=== PATIENT | male | born 1990 | race Caucasian/White ===

== ENCOUNTER 2024-07-18 10:05 | Emergency (ER) | payer OTHER ==
--- NOTE | 2024-07-18 11:18 | RAD REPORT ---
EXAMINATION: ONE VIEW CHEST XR CLINICAL INDICATION: CHEST PAIN TECHNIQUE: Frontal chest projection is submitted. Examination is limited by patient positioning and t echnique. COMPARISON: No prior exam. FINDINGS: The lungs are well inflated and clear. The heart is upper limit of normal in size. No displaced fract ures identified. IMPRESSION: No acute intrathoracic abnormalities.
[2024-07-18 12:06] LABS: Absolute Eosinophils 0.2 K/uL (0-0.5); Absolute Lymphocytes (CBC) 2.1 K/uL (0.7-4.9); Absolute Monocytes 0.4 K/uL (0.1-1.3); Absolute Neutrophil 3.4 K/uL (1.8-8.0); Basophils % 0.8 % (0-1.3); Hematocrit 47.2 % (39.6-49.0); Hemoglobin 16.7 g/dL (13.6-17.9); Lymphocytes % 33.9 % (15.3-44.8); MCHC 35.5 g/dL (32.0-36.0); MCV 87.4 fL (80-100); MPV 9.2 fL (7.6-11.3); Monocytes % 6.6 % (3.3-12.3); Neutrophils % 55.7 % (41.7-73.7); Platelets 249 thou/uL (152-406); Red Cell Distribution Width 13.2 % (12.1-15.2)
[2024-07-18 12:24] LABS: Anion Gap 9.2 mEq/L (5.0-15.0); Potassium 4.2 mEq/L (3.5-5.1); Troponin High Sensitivity 4.6 pg/mL (<58.9)
--- NOTE | 2024-07-18 13:07 | ER ---
Nurse's Notes [facility] Name: Los Graham Age: 34 yrs Sex: Male : 1990 Arrival Date: 07/18/2024 Time: 10:05 Bed 18 Private MD: Diagnosis: Chest pain, unspecified Presentation: 07/18 10:13 Chief complaint: Patient states: Past couple of days had chest pain (more of a ko1 discomfort) on right side down into ribs, hurts when taking a deep breath. Coronavirus screen: At this time, the client does not indicate any symptoms associated with coronavirus-19. Ebola Screen: No symptoms or risks identified at this time. Initial Sepsis Screen: Does the patient meet any 2 criteria? No. Patient's initial sepsis screen is negative. Does the patient have a suspected source of infection? No. Patient's initial sepsis screen is negative. Risk Assessment: Do you want to hurt yourself or someone else? Patient reports no desire to harm self or others. Onset of symptoms is unknown. 10:13 Method Of Arrival: Ambulatory ko1 10:13 Acuity: DAPHNE 3 ko1 Triage Assessment: 10:17 General: Appears in no apparent distress. Behavior is calm, cooperative, appropriate ko1 for age. Pain: Complains of pain in right side of chest/ribs. Cardiovascular: No deficits noted. Historical: - Allergies: 10:17 No Known Allergies; ko1 - Home Meds: 10:17 lisinopril 10 mg oral tablet daily for hypertension [Active]; metoprolol tartrate 50 mg ko1 Oral tablet 1 tab daily for hypertension [Active]; - PMHx: 10:17 Hypertensive disorder; ko1 - PSHx: 10:17 Tonsillectomy; ko1 - Immunization history:: Adult Immunizations up to date. - Infectious Disease History:: Denies. - Social history:: Smoking status: Patient denies any tobacco usage or history of. - Family history:: not pertinent. - Hospitalizations: : No recent hospitalization is reported. Assessment: 13:29 Reassessment: Patient and/or family updated on plan of care and expected duration. Pain ss level reassessed. Patient is alert, oriented x 3, equal unlabored respirations, skin warm/dry/pink. Vital Signs: 10:13 BP 131 / 87; Pulse 65; Resp 16; Temp 97.5; Pulse Ox 98% on R/A; Weight 108.86 kg; ko1 Height 5 ft. 11 in. ; Pain 3/10; 11:40 BP 119 / 79; Pulse 69; Resp 16; Temp 98.3; Pulse Ox 98% on R/A; os 10:13 Body Mass Index 33.47 (108.86 kg, 180.34 cm) ko1 10:13 Pain Scale: Adult ko1 ED Course: 10:09 Patient arrived in ED. sj2 10:10 Harjeet Perez MD is Attending Physician. rn 10:17 Triage completed. ko1 10:17 Arm band placed on right wrist. Patient placed in an exam room, on a stretcher, on ko1 radiation monitor, on pulse oximetry, Patient notified of wait time. 10:38 XRAY Chest (1 view) In Process Unspecified. EDMS 10:40 Kenyatta Ontiveros, RN is Primary Nurse. os 11:25 Basic Metabolic Panel Sent. os 11:25 CBC with Diff Sent. os 11:26 D-Dimer Sent. os 11:26 NT PRO-BNP Sent. os 11:26 Troponin HS Sent. os 12:01 Lab(s) recollected, by me, sent to lab. Inserted saline lock: 22 gauge in right em1 antecubital area, using aseptic technique. Blood collected. Flushed with 10 mL NS. 13:29 IV discontinued, intact, bleeding controlled, No redness/swelling at site. Pressure ss dressing applied. Administered Medications: No medications were administered Medication: 13:29 VIS not applicable for this client. Outcome: 13:06 Discharge ordered by . rn 13:29 Discharged to home ambulatory, 13:29 Condition: good 13:29 Discharge instructions given to patient, Instructed on discharge instructions, follow up and referral plans. Demonstrated understanding of instructions, follow-up care, 13:29 Patient left the ED. ss Signatures: Dispatcher [employer] EDMS Harjeet Perez MD MD rn Martinez, Eric em1 Maite Chua RN RN Dena Cespedes RN RN ko1 Kenyatta Ontiveros, SIENA WREN os Birdie Edwards 2
--- NOTE | 2024-07-18 13:07 | EDPHYS ---
Physician Documentation [facility] Name: Los Graham Age: 34 yrs Sex: Male : 1990 Arrival Date: 07/18/2024 Time: 10:05 Bed 18 Private MD: ED Physician Harjeet Perez HPI: 07/18 11:13 This 34 yrs old Male presents to ER via Ambulatory with complaints of Chest Pain. rn 11:13 The patient or guardian reports chest pain that is located primarily in the anterior rn chest wall, right. The pain does not radiate. Associated signs and symptoms: Pertinent positives: cough, Pertinent negatives: abdominal pain, lower extremity swelling, palpitations, shortness of breath, syncope, vomiting. The chest pain is described as sharp, stabbing. Severity of pain: At its worst the pain was moderate in the emergency department the pain is unchanged. The patient has not experienced similar symptoms in the past. Patient reports right-sided sharp stabbing chest pain when takes a deep breath. No trauma. No fever. Does report dry cough. Negative for hemoptysis. No history of DVT or PE. No lower extremity swelling. No recent immobilization.. Historical: - Allergies: 10:17 No Known Allergies; ko1 - Home Meds: 10:17 lisinopril 10 mg oral tablet daily for hypertension [Active]; metoprolol tartrate 50 mg ko1 Oral tablet 1 tab daily for hypertension [Active]; - PMHx: 10:17 Hypertensive disorder; ko1 - PSHx: 10:17 Tonsillectomy; ko1 - Immunization history:: Adult Immunizations up to date. - Infectious Disease History:: Denies. - Social history:: Smoking status: Patient denies any tobacco usage or history of. - Family history:: not pertinent. - Hospitalizations: : No recent hospitalization is reported. ROS: 11:13 Constitutional: Negative for fever, chills, and weight loss, Cardiovascular: Positive rn for chest pain Respiratory: Positive for right-sided pleuritic chest pain with deep inspiration and movement. Abdomen/GI: Negative for abdominal pain, nausea, vomiting, diarrhea, and constipation, MS/Extremity: Negative for injury and deformity, Neuro: Negative for headache, weakness, numbness, tingling, and seizure, Exam: 11:13 Constitutional: This is a well developed, well nourished patient who is awake, alert, rn and in no acute distress. Cardiovascular: Regular rate and rhythm. No pulse deficits. Respiratory: No increased work of breathing, no retractions or nasal flaring. No retractions. Speaking full sentences Abdomen/GI: Soft, non-tender MS/ Extremity: Pulses equal, no cyanosis. Neurovascular intact. Full, normal range of motion. Equal circumference. Neuro: Awake and alert, GCS 15 11:30 ECG was reviewed by the Attending Physician. rn Vital Signs: 10:13 BP 131 / 87; Pulse 65; Resp 16; Temp 97.5; Pulse Ox 98% on R/A; Weight 108.86 kg; ko1 Height 5 ft. 11 in. ; Pain 3/10; 11:40 BP 119 / 79; Pulse 69; Resp 16; Temp 98.3; Pulse Ox 98% on R/A; os 10:13 Body Mass Index 33.47 (108.86 kg, 180.34 cm) ko1 10:13 Pain Scale: Adult ko1 MDM: 10:10 Medical Screening Exam initiated rn 13:04 Differential diagnosis: abnormal EKG, acute myocardial infarction, acute pericarditis, rn anxiety, coronary artery disease chest wall pain, costochondritis, gastritis, gastroesophageal reflux disease (GERD), pleurisy, pneumothorax, stable angina. HEART Score: History: Slightly Suspicious (0), ECG: Normal (0), Age: < or = 45 years (0), Risk Factors: No Risk Factors Known (0), Troponin: < or = 1 x Normal Limit (0), Total Score = 0. Data reviewed: vital signs, nurses notes, lab test result(s), EKG, radiologic studies, plain films, and as a result, I will discharge patient. Counseling: I had a detailed discussion with the patient and/or guardian regarding the historical points, exam findings, and any diagnostic results supporting the discharge/admit diagnosis, lab results, radiology results, the need for outpatient follow up, to return to the emergency department if symptoms worsen or persist or if there are any questions or concerns that arise at home. Special discussion: Based on the patient's history, exam, and Dx evaluation, there is no indication for emergent intervention or inpatient Tx. It is understood by the patient/guardian that if the Sx's persist or worsen they need to return immediately for re-evaluation. I discussed with the patient/guardian in detail that at this point there is no indication for admission to the hospital. It is understood, however, that if the symptoms persist or worsen the patient needs to return immediately for re-evaluation. 13:04 ED course: I have personally reviewed all of the results, including but not limited to rn blood tests and imaging deemed necessary to safely discharge this patient at this time. All results given to and printed out for patient. I personally went over all the results with the patient and answered all questions. Patient will follow-up with PCP and or specialist as discussed. Return precautions given and understood.. 07/18 11:08 Order name: Basic Metabolic Panel; Complete Time: :07/18 11:08 Order name: CBC with Diff rn 07/18 11:08 Order name: D-Dimer; Complete Time: 07/18 11:08 Order name: NT PRO-BNP; Complete Time: 07/18 11:08 Order name: Troponin HS; Complete Time: 07/18 10:10 Order name: XRAY Chest (1 view); Complete Time: 1107/18 11:08 Order name: EKG; Complete Time: 07/18 10:10 Order name: EKG - Nurse/Tech; Complete Time: 07/18 11:08 Order name: Cardiac monitoring; Complete Time: 07/18 11:08 Order name: IV Saline Lock; Complete Time: :07/18 11:08 Order name: Labs collected and sent; Complete Time: 07/18 11:08 Order name: O2 Per Protocol; Complete Time: 07/18 11:08 Order name: O2 Sat Monitoring; Complete Time: 07/18 11:49 Order name: Labs - recollect needed: ALL LABS; Complete Time: 12: ss EC:30 Rate is 66 beats/min. Rhythm is regular. QRS [place] is Normal. CO interval is normal. QRS rn interval is normal. QT interval is normal. No Q waves. T waves are Normal. No ST changes noted. Clinical impression: NSR w/ Non-specific ST/T Changes. Interpreted by me. Reviewed by me. Administered Medications: No medications were administered Disposition Summary: 07/18/24 13:06 Discharge Ordered Notes: Location: Home rn Problem: new rn Symptoms: have improved rn Condition: Stable rn Diagnosis - Chest pain, unspecified rn Followup: rn - With: Private Physician - When: As needed - Reason: Recheck today's complaints, Re-evaluation by your physician Discharge Instructions: - Discharge Summary Sheet rn - Nonspecific Chest Pain, Adult rn Forms: - Medication Reconciliation Form rn - Antibiotic rn progressive care - Prescription Opioid Use rn - Patient Portal Instructions rn - Leadership Thank You Letter rn Signatures: Dispatcher [employer] [facility] Harjeet Perez MD MD rn Blanchard, Shelby, RN RN ss Dena Cespedes RN RN ko1 Corrections: (The following items were deleted from the chart) 10:11 10:11 Chest Single View+[email or web address] ordered. [facility]
[2024-07-18 13:29] LABS: Blood Morphology Comment NOT SEEN (NOT SEEN); Platelet Estimate ADEQ; White Blood Cell Scan OK (OK)
[2024-07-18 14:00] VITALS: O2SAT 98
[2024-07-18 14:06] VITALS: BP 119/79; TEMP 98.3
--- NOTE | 2024-07-24 13:14 | EKG ---
Test Date: 2024-07-18 Test Time: 11:05:27 Parts Data Writer: OS MEASUREMENT RESULTS: Intervals: Rate: 66 UT: 172 QRSD: 108 QT: 402 QTc: 421 [place]: P: 39 UT: 172 QRS: 44 T: 33 INTERPRETIVE STATEMENTS: Normal sinus rhythm with sinus arrhythmia Normal ECG No previous ECG available for comparison Electronically Signed On 07-24-24 13:04:20 BUSINESS ADMINISTRATION PROFESSOR by Austin August
== END 2024-07-18 13:29 | disposition home or self-care (01) ==
LOC: ER 10:05
DX: R07.89 Other chest pain (principal); I10 Essential (primary) hypertension
CPT/HCPCS: 36415; 71045; 80048; 83880; 84484; 85025; 85379; 93005; 99284